=== PATIENT | female | born 1975 | race Asian ===

== ENCOUNTER 2017-01-11 10:01 | Inpatient (IN) | payer MEDICAID, OTHER ==
[~2017-01-11] VITALS: Ht 157.5 cm; Wt 56.5 kg
[2017-01-11] MEDS ORDERED: SOD CHLORIDE 0.9% 1,000 ML IV STA ×2 (11:24)
[2017-01-11] MEDS ORDERED: FERR325C PO (11:26)
[2017-01-11] MEDS ORDERED: PROG100C5 PO (11:26)
[2017-01-11] MEDS ORDERED: MULTI PO (11:27)
[2017-01-11] MEDS ORDERED: CHOL400T10 PO (11:27)
[2017-01-11 12:33] LABS: ABNORMAL IP MESSAGE 1; BASOPHILS % 0.3 % (0.0-2.0); EOSINOPHILS % 0.2 % (0.0-7.0); HEMATOCRIT 20.7 % (37.0-47.0); LYMPHOCYTES # 2.1 10^3/ul (0.8-2.9); LYMPHOCYTES % 22.9 % (15.0-51.0); MEAN CORPUSCULAR HEMOGLOBIN 32.1 pg (29.0-33.0); MEAN CORPUSCULAR HGB CONC 33.3 g/dl (32.0-37.0); MEAN CORPUSCULAR VOLUME 96.3 fl (82.0-101.0); MEAN PLATELET VOLUME 9.3 fl (7.4-10.4); MONOCYTE # 0.6 10^3/ul (0.3-0.9); MONOCYTES % 6.8 % (0.0-11.0); NEUTROPHILS % 69.1 % (39.0-77.0); PLATELET COUNT 345 10^3/UL (140-415); RED BLOOD COUNT 2.15 10^6/ul (4.20-5.40); RED CELL DISTRIBUTION WIDTH 12.9 % (11.5-14.5)
[2017-01-11 12:36] LABS: INR 0.91; PARTIAL THROMBOPLASTIN TIME 27.1 Sec (25.0-35.0); PROTIME 12.3 Sec (12.2-14.2)
[2017-01-11 12:41] LABS: ALANINE AMINOTRANSFERASE 22 IU/L (13-69); ALBUMIN 3.7 g/dl (3.3-4.9); ALBUMIN/GLOBULIN RATIO 1.27; ALKALINE PHOSPHATASE 39 IU/L (42-121); ANION GAP 20 (8-16); ASPARTATE AMINO TRANSFERASE 23 IU/L (15-46); BILIRUBIN,INDIRECT 0.2 mg/dl (0-1.1); BILIRUBIN,TOTAL 0.2 mg/dl (0.2-1.3); BLOOD UREA NITROGEN 3 mg/dl (7-20); CALCIUM 9.1 mg/dl (8.4-10.2); CARBON DIOXIDE 24 mmol/L (21-31); CHLORIDE 105 mmol/L (97-110); CREATININE 0.72 mg/dl (0.44-1.00); GLUCOSE 102 mg/dl (70-220); POTASSIUM 3.8 mmol/L (3.5-5.1); SODIUM 145 mmol/L (135-144); TOTAL PROTEIN 6.6 g/dl (6.1-8.1)
[2017-01-11 12:45] LABS: HEMOGLOBIN 6.9 g/dl (12.0-16.0); POSITIVE DIFF @See below
[2017-01-11 12:46] LABS: PATH REVIEW? YES
[2017-01-11 13:02] LABS: TROPONIN-I < 0.012 ng/ml (0.00-0.12)
[2017-01-11] MEDS ORDERED: SOD CHLORIDE 0.9% 250 ML IV ONE (13:05)
[2017-01-11] MEDS ORDERED: ACETAMINOPHEN 325 MG TAB PO ONE (13:30)
--- NOTE | 2017-01-11 13:52 | ERA ---
ER Documentation Chief Complaint Date/Time DATE: 01/11/17 TIME: 13:48 Chief Complaint Complains of Chest pain and SOB since last night HPI Patient is a 41-year-old female with no medical problems who presents with "severe menorrhagia". She said that she had 2 epidurals of cortisone done in the last 6 months and after the second epidural she started with dysfunctional uterine bleeding. She said that she started with her period on December 21 and is continued to have bleeding since then. She said that she her heart rate is tachycardic at 140. She was initially having brown and black blood but now it is bright red blood. She denies chest pain. Today she felt a little bit better and she started progesterone on Sunday after being seen by Dr. Bradford Rojas from OB. She started iron 1 week ago as well. Upon review of old medical records this is the patient's first visit to the ER. ROS All systems reviewed and are negative except as per history of present illness. Medications Home Meds Reported Medications Cholecalciferol* (Vitamin D*) 400 Unit Tablet, 400 UNIT PO DAILY, TAB 01/11/17 Multivitamins* (Theragran*) 1 Tab Tab, 1 TAB PO DAILY, TAB 01/11/17 Ferrous Sulfate (Iron) 325 Mg Capsule.er, 325 MG PO BID, CAP 01/11/17 Progesterone,Micronized* (Progesterone*) 100 Mg Capsule, 100 MG PO HS for 10 Days, CAP 01/11/17 Allergies Allergies: Coded Allergies: tapentadol (Verified Allergy, Severe, 01/11/17) PMhx/Soc Medical and Surgical Hx: pt denies Medical Hx, pt denies Surgical Hx Hx Alcohol Use: No Hx Substance Use: No Hx Tobacco Use: No Smoking Status: Never smoker FmHx Family History: No diabetes Physical Exam Vitals Vital Signs Date Time Temp Pulse Resp B/P Pulse Ox O2 Delivery O2 Flow Rate FiO2 01/11/17 12:26 94 16 133/81 98 Room Air 01/11/17 11:44 Nasal Cannula 2 01/11/17 10:12 98.5 136 20 128/81 99 Physical Exam Const: Moderate distress Head: Atraumatic Eyes: Normal Conjunctiva ENT: Normal External Ears, Nose and Mouth. Neck: Full range of motion..~ No meningismus. Resp: Clear to auscultation bilaterally Cardio: Tachycardic rate without murmur Abd: Soft, non tender, non distended. Normal bowel sounds Skin: Pale skin Back: No midline or flank tenderness Ext: No cyanosis, or edema Neur: Awake and alert Psych: Normal Mood and Affect Result Diagram: 01/11/17 1150 01/11/17 1150 Results 24 hrs Laboratory Tests Test 01/11/17 11:50 White Blood Count 9.010^3/ul Red Blood Count 2.1510^6/ul Hemoglobin 6.9g/dl Hematocrit 20.7% Mean Corpuscular Volume 96.3fl Mean Corpuscular Hemoglobin 32.1pg Mean Corpuscular Hemoglobin Concent 33.3g/dl Red Cell Distribution Width 12.9% Platelet Count 19004^3/UL Mean Platelet Volume 9.3fl Neutrophils % 69.1% Lymphocytes % 22.9% Monocytes % 6.8% Eosinophils % 0.2% Basophils % 0.3% Nucleated Red Blood Cells % 0.0/100WBC Neutrophils # (Manual) 6.210^3/ul Lymphocytes # 2.110^3/ul Monocytes # 0.610^3/ul Eosinophils # 0.010^3/ul Basophils # 0.010^3/ul Nucleated Red Blood Cells # 0.010^3/ul Pathologist Review (Hematology) YES Prothrombin Time 12.3Sec Prothrombin Time Ratio 1.0 INR International Normalized Ratio 0.91 Activated Partial Thromboplast Time 27.1Sec Sodium Level 145mmol/L Potassium Level 3.8mmol/L Chloride Level 105mmol/L Carbon Dioxide Level 24mmol/L Anion Gap 20 Blood Urea Nitrogen 3mg/dl Creatinine 0.72mg/dl Glucose Level 102mg/dl Calcium Level 9.1mg/dl Total Bilirubin 0.2mg/dl Direct Bilirubin 0.00mg/dl Indirect Bilirubin 0.2mg/dl Aspartate Amino Transf (AST/SGOT) 23IU/L Alanine Aminotransferase (ALT/SGPT) 22IU/L Alkaline Phosphatase 39IU/L Troponin I < 0.012ng/ml Total Protein 6.6g/dl Albumin 3.7g/dl Globulin 2.90g/dl Albumin/Globulin Ratio 1.27 Current Medications Medications (Trade) Dose Ordered Sig/Marquis Route PRN Reason Start Time Stop Time Status Last Admin Dose Admin Sodium Chloride 1,000 ml @ 1,000 mls/hr Q1H STAT IV 01/11/17 11:24 01/11/17 12:23 DC 01/11/17 11:36 Sodium Chloride 1,000 ml @ 1,000 mls/hr Q1H STAT IV 01/11/17 11:24 01/11/17 12:23 DC 01/11/17 11:37 Sodium Chloride (NS) 250 ml @ 0 mls/hr Q0M ONCE IV 01/11/17 13:05 01/11/17 13:06 DC Acetaminophen (Tylenol Tab) 650 mg ONCE ONCE PO 01/11/17 13:30 01/11/17 13:31 DC 01/11/17 13:37 Ondansetron HCl (Zofran Inj) 4 mg BRIDGE ORDER PRN IV NAUSEA AND/OR VOMITING 01/11/17 14:00 01/12/17 13:59 Acetaminophen (Tylenol Tab) 650 mg ER BRIDGE PRN PO MILD PAIN/FEVER 01/11/17 14:00 01/12/17 13:59 Procedures/MDM EKG read by me: Rate/Rhythm: Sinus tachycardia intervals: Normal Impression: Sinus tachycardia without ischemia Patient is a 41-year-old female who presents with dysfunctional uterine bleeding. She was found to have acute anemia at 6.9 with symptomatic anemia she feels short of breath and is tachycardic. The patient was given 2 L of normal saline for fluid resuscitation and will be transfused 2 units of packed red blood cells. The patient will be admitted to the care of Dr. Redman from the panel team for further treatment. The patient will be admitted to a medical surgical bed. The patient denies being at this time and we will confirm with a test. Critical Care: Time: 35 minutes excluding all billable procedures. Treatments/Evaluations: Close monitoring and treatment of unstable vital signs, cardiorespiratory, and neurologic status, while maintaining tight balance of fluid, respiratory, and cardiac interventions. Departure Diagnosis: Primary Impression: Dysfunctional uterine bleeding Additional Impression: Anemia Qualified Code: D64.9 - Anemia, unspecified type Condition: WING Toscano MD Jan 11, 2017 13:52
[2017-01-11] MEDS ORDERED: ONDANSETRON 4 MG INJ IV PRN ×2 (14:00→19:00)
[2017-01-11] MEDS ORDERED: ACETAMINOPHEN 325 MG TAB PO PRN (14:00)
[2017-01-11 18:10] VITALS: BP 100/57; PULSE 99; RESP 16
[2017-01-11 18:45] VITALS: Ht 157.5 cm; Wt 56.5 kg
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
[2017-01-11] MEDS ORDERED: NACL 0.9% 3 ML SYG IV SCH (19:00)
[2017-01-11] MEDS ORDERED: DOCUSATE SODIUM 100 MG CAP PO PRN (19:00)
[2017-01-11] MEDS ORDERED: morphine 2 MG INJ IV PRN (19:00)
[2017-01-11 19:33] VITALS: BP 116/67; RESP 20
[2017-01-11 20:00] VITALS: BP 96/51; RESP 20
[2017-01-11] MEDS: PROGESTERONE 100 MG CAP PO SCH (22:18)
[2017-01-11] MEDS: FERROUS SULFATE (EC) 325 MG TAB PO SCH (22:19)
[2017-01-11] MEDS: ZOLPIDEM 5 MG TAB PO PRN (22:19)
[2017-01-12] MEDS: ACETAMINOPHEN 325 MG TAB PO PRN ×3 (00:14→20:31)
[2017-01-12 02:00] VITALS: BP 115/61; RESP 20
[2017-01-12] MEDS: SOD CHLORIDE 0.45% 1,000 ML IV SCH ×2 (02:41→04:54)
[2017-01-12 06:19] LABS: ABNORMAL IP MESSAGE 1; BASOPHILS % 0.5 % (0.0-2.0); EOSINOPHILS # 0.1 10^3/ul (0.0-0.5); EOSINOPHILS % 1.8 % (0.0-7.0); HEMATOCRIT 20.8 % (37.0-47.0); LYMPHOCYTES # 2.6 10^3/ul (0.8-2.9); LYMPHOCYTES % 42.3 % (15.0-51.0); MEAN CORPUSCULAR HEMOGLOBIN 30.3 pg (29.0-33.0); MEAN CORPUSCULAR HGB CONC 33.2 g/dl (32.0-37.0); MEAN CORPUSCULAR VOLUME 91.2 fl (82.0-101.0); MEAN PLATELET VOLUME 9.2 fl (7.4-10.4); MONOCYTE # 0.4 10^3/ul (0.3-0.9); MONOCYTES % 7.1 % (0.0-11.0); NEUTROPHILS % 47.8 % (39.0-77.0); PLATELET COUNT 229 10^3/UL (140-415); RED BLOOD COUNT 2.28 10^6/ul (4.20-5.40); WHITE BLOOD COUNT 6.2 10^3/ul (4.8-10.8)
[2017-01-12 06:44] LABS: POSITIVE DIFF @See below
[2017-01-12 06:45] LABS: HEMOGLOBIN 6.9 g/dl (12.0-16.0)
[2017-01-12 06:52] LABS: CALCIUM 7.6 mg/dl (8.4-10.2); CREATININE 0.7 mg/dl (0.44-1.00); PHOSPHORUS 3.7 mg/dl (2.5-4.9); POTASSIUM 3.9 mmol/L (3.5-5.1)
[2017-01-12 07:48] VITALS: BP 107/57; RESP 16
--- NOTE | 2017-01-12 09:09 | RADRPT ---
PROCEDURE: US Pelvis. CLINICAL INDICATION: Abnormal vaginal bleeding. TECHNIQUE: The pelvis was evaluated with transabdominal and transvaginal sonography in the axial a nd sagittal planes. COMPARISON: No prior study is available for comparison. FINDINGS: Uterus: 8.5 x 8.9 x 5.7 cm. Endometrium: 4.6 mm. Right ovary: 3.1 x 1.6 x 2.2 cm. Left ovary: 5.6 x 4.0 x 3.9 cm. Uterine masses: None. Ovarian masses: The right ovary is normal. There is a benign-appearing left ovarian cyst measuring 4.4 x 3.6 x 3.3 cm. There are no internal echoes or septations. Color Doppler and pulsed Doppler so nography demonstrate normal flow to the ovaries. Other pelvic masses: None. Free fluid: Minimal free fluid is present in the cul-de-sac, likely physiologic. IMPRESSION: 1. Benign-appearing left ovarian cyst measuring 4.4 x 3.6 x 3.3 cm. Follow-up ultrasound in 6 week s is advised. 2. Otherwise unremarkable study. RPTAT: QQ .Lance Morales MD, Date Time Electronically viewed and signed by .Lance Morales MD, on 01/12/2017 09:08 .R/
[2017-01-12] MEDS: MULTIVITAMINS THERAPEUTIC TAB PO SCH (09:20)
[2017-01-12] MEDS: FERROUS SULFATE (EC) 325 MG TAB PO SCH ×2 (09:20→20:31)
[2017-01-12] MEDS: CHOLECALCIFEROL 400 UNITS TAB PO SCH (09:20)
[2017-01-12] MEDS: HYDROCODONE/APAP (5/325) TAB PO PRN (12:28)
--- NOTE | 2017-01-12 14:01 | PN ---
Date/Time of Note Date/Time of Note DATE: 01/12/17 TIME: 13:54 Assessment/Plan VTE Prophylaxis VTE Prophylaxis Intervention: ambulation Lines/Catheters IV Catheter Type (from Nrs): Peripheral IV Assessment/Plan Chief Complaint/Hosp Course 1. Severe symptomatic anemia secondary to dysfunctional uterine bleeding Gynecology consultation obtained, ultrasound done shows only simple ovarian cyst Status post 2 units of packed red blood cells and will transfuse another 2 as hemoglobin still low Continue home iron and progesterone 2. Hypernatremia IV fluids Prophylaxis: Ambulation Problems: Subjective 24 Hr Interval Summary Genitourinary: bleeding Exam/Review of Systems Vital Signs Vitals Vital Signs Date Time Temp Pulse Resp B/P Pulse Ox O2 Delivery O2 Flow Rate FiO2 01/12/17 07:48 98.6 95 16 107/57 97 01/11/17 18:10 Room Air 01/11/17 11:44 2 Intake and Output 01/11/17 01/11/17 01/12/17 15:00 23:00 07:00 Intake Total 360 ml 1212 ml Output Total 651 ml Balance 360 ml 561 ml Exam Constitutional: alert, oriented Respiratory: clear to auscultation Cardiovascular: regular rate and rhythm Gastrointestinal: soft, No distended Musculoskeletal: nl extremities to inspection Results Result Diagram: 01/12/17 0544 01/12/17 0544 Results 24 hrs Laboratory Tests Test 01/11/17 15:13 01/12/17 05:44 Serum HCG, Qualitative NEGATIVE White Blood Count 6.2 # Red Blood Count 2.28 L Hemoglobin 6.9 *L Hematocrit 20.8 L Mean Corpuscular Volume 91.2 Mean Corpuscular Hemoglobin 30.3 Mean Corpuscular Hemoglobin Concent 33.2 Red Cell Distribution Width 19.0 #H Platelet Count 229 # Mean Platelet Volume 9.2 Neutrophils % 47.8 Lymphocytes % 42.3 Monocytes % 7.1 Eosinophils % 1.8 Basophils % 0.5 Nucleated Red Blood Cells % 0.0 Neutrophils # (Manual) 3.0 Lymphocytes # 2.6 Monocytes # 0.4 Eosinophils # 0.1 Basophils # 0.0 Nucleated Red Blood Cells # 0.0 Sodium Level 137 Potassium Level 3.9 Chloride Level 109 Carbon Dioxide Level 26 Anion Gap 6 #L Blood Urea Nitrogen 6 L Creatinine 0.70 Glucose Level 75 Hemoglobin A1c 4.8 Calcium Level 7.6 L Phosphorus Level 3.7 Magnesium Level 2.0 Medications Medications Current Medications Sodium Chloride (1/2 NS) 1,000 ml @ 100 mls/hr Q10H IV Last administered on 02:41; Admin Dose 100 MLS/HR; Start 01/11/17 at 18:54; Stop 01/12/17 at 14 :53 Ondansetron HCl (Zofran Inj) 4 mg Q6H PRN IV NAUSEA AND/OR VOMITING; Start at 19:00 Acetaminophen (Tylenol Tab) 650 mg Q6H PRN PO PAIN LEVEL 1-3 OR FEVER Last administered on 01/12/17 10:49; Admin Dose 650 MG; Start 01/11/17 at 19:00 Acetaminophen/ Hydrocodone Bitart ([place] (5/325)) 1 tab Q6H PRN PO MODERATE PAIN LEVEL 4-6 Last administered on 01/12/17 12:28; Admin Dose 1 TAB; Start at 19:00 Morphine Sulfate (morphine) 2 mg Q4H PRN IV SEVERE PAIN LEVEL 7-10; Start 01/11 at 19:00 Docusate Sodium (Colace) 100 mg Q12H PRN PO CONSTIPATION; Start 01/11/17 at 19: 00 Cholecalciferol (Vitamin D) 400 units DAILY PO Last administered on 01/12/17 09 :20; Admin Dose 400 UNITS; Start 01/12/17 at 09:00 Multivitamins Therapeutic (Theragran) 1 tab DAILY PO Last administered on 09:20; Admin Dose 1 TAB; Start 01/12/17 at 09:00 Progesterone (Prometrium) 100 mg HS PO Last administered on 01/11/17 22:18; Admin Dose 100 MG; Start 01/11/17 at 21:00 Ferrous Sulfate (Ferrous Sulfate (Ec)) 325 mg BID PO Last administered on 09:20; Admin Dose 325 MG; Start 01/11/17 at 21:00 ROSELYN HAIDER Jan 12, 2017 14:01
[2017-01-12 19:23] VITALS: BP 121/74; RESP 20
[2017-01-12] MEDS: PROGESTERONE 100 MG CAP PO SCH (20:31)
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
[2017-01-13] VITALS (25 sets, daily range): BP systolic 99–155; BP diastolic 55–96; PULSE 62–88; RESP 11–22
[2017-01-13] MEDS: ZOLPIDEM 5 MG TAB PO PRN (00:10)
[2017-01-13] MEDS: DEXTROSE 5%-0.45% NACL 500 ML IV SCH ×2 (02:37→08:40)
[2017-01-13] MEDS: ACETAMINOPHEN 325 MG TAB PO PRN ×2 (02:37→09:59)
[2017-01-13 06:04] LABS: BASOPHILS % 0.6 % (0.0-2.0); EOSINOPHILS # 0.2 10^3/ul (0.0-0.5); EOSINOPHILS % 2.8 % (0.0-7.0); HEMATOCRIT 29.7 % (37.0-47.0); HEMOGLOBIN 9.8 g/dl (12.0-16.0); LYMPHOCYTES # 2.6 10^3/ul (0.8-2.9); LYMPHOCYTES % 35.9 % (15.0-51.0); MEAN CORPUSCULAR HEMOGLOBIN 29.9 pg (29.0-33.0); MEAN CORPUSCULAR VOLUME 90.5 fl (82.0-101.0); MEAN PLATELET VOLUME 9.2 fl (7.4-10.4); MONOCYTE # 0.5 10^3/ul (0.3-0.9); MONOCYTES % 6.8 % (0.0-11.0); NEUTROPHILS % 53.5 % (39.0-77.0); PLATELET COUNT 240 10^3/UL (140-415); RED BLOOD COUNT 3.28 10^6/ul (4.20-5.40); RED CELL DISTRIBUTION WIDTH 16.2 % (11.5-14.5); WHITE BLOOD COUNT 7.3 10^3/ul (4.8-10.8)
[2017-01-13 06:38] LABS: CALCIUM 7.9 mg/dl (8.4-10.2); CREATININE 0.77 mg/dl (0.44-1.00); POTASSIUM 3.8 mmol/L (3.5-5.1)
[2017-01-13] MEDS ORDERED: CEFAZOLIN 1 GM INJ ONE (07:00)
[2017-01-13 08:13] LABS: FREE T3 3.33 pg/ml (2.77-5.27)
[2017-01-13] MEDS: FERROUS SULFATE (EC) 325 MG TAB PO SCH ×2 (08:17→21:00)
[2017-01-13] MEDS: MULTIVITAMINS THERAPEUTIC TAB PO SCH (08:17)
[2017-01-13] MEDS: CHOLECALCIFEROL 400 UNITS TAB PO SCH (08:17)
[2017-01-13 08:26] LABS: THYROID STIMULATING HORMONE 1.31 MIU/L (0.465-4.680)
[2017-01-13] MEDS: HYDROCODONE/APAP (5/325) TAB PO PRN (08:26)
[2017-01-13] MEDS ORDERED: DEXTROSE 5%-0.45% NACL 1,000 ML IV SCH (10:00)
--- NOTE | 2017-01-13 12:48 | PN ---
Date/Time of Note Date/Time of Note DATE: 01/13/17 TIME: 12:45 Assessment/Plan VTE Prophylaxis VTE Prophylaxis Intervention: ambulation Lines/Catheters IV Catheter Type (from Nrs): Peripheral IV Assessment/Plan Chief Complaint/Hosp Course 1. Severe symptomatic anemia secondary to dysfunctional uterine bleeding-stable Gynecology consultation obtained, ultrasound done shows only simple ovarian cyst , plan is for his for hysteroscopy and fractional dilatation and cuettage after blood count is acceptable for procedure Status post 4 units of packed red blood cells Continue home iron and progesterone 2. Hypernatremia-resolved DC IV fluids 3. Shortness of breath-patient saturating well, likely secondary to anxiety Chest x-ray, DC IV fluids Prophylaxis: Ambulation Problems: Subjective 24 Hr Interval Summary Respiratory: shortness of breath Exam/Review of Systems Vital Signs Vitals Vital Signs Date Time Temp Pulse Resp B/P Pulse Ox O2 Delivery O2 Flow Rate FiO2 01/13/17 09:55 98.0 82 22 124/70 99 Room Air 01/11/17 11:44 2 Intake and Output 01/12/17 01/12/17 01/13/17 15:00 23:00 07:00 Intake Total 2620 ml 553 ml Output Total 1500 ml Balance 1120 ml 553 ml Exam Constitutional: alert, oriented Psych: anxiety Head: normocephalic Respiratory: clear to auscultation Cardiovascular: regular rate and rhythm Gastrointestinal: soft, No distended Musculoskeletal: nl extremities to inspection Results Result Diagram: 01/13/17 0515 01/13/17 0515 Results 24 hrs Laboratory Tests Test 01/13/17 05:15 01/13/17 05:17 White Blood Count 7.3 Red Blood Count 3.28 #L Hemoglobin 9.8 #L Hematocrit 29.7 #L Mean Corpuscular Volume 90.5 Mean Corpuscular Hemoglobin 29.9 Mean Corpuscular Hemoglobin Concent 33.0 Red Cell Distribution Width 16.2 H Platelet Count 240 Mean Platelet Volume 9.2 Neutrophils % 53.5 Lymphocytes % 35.9 Monocytes % 6.8 Eosinophils % 2.8 Basophils % 0.6 Nucleated Red Blood Cells % 0.0 Neutrophils # (Manual) 3.9 Lymphocytes # 2.6 Monocytes # 0.5 Eosinophils # 0.2 Basophils # 0.0 Nucleated Red Blood Cells # 0.0 Sodium Level 139 Potassium Level 3.8 Chloride Level 108 Carbon Dioxide Level 27 Anion Gap 8 Blood Urea Nitrogen 7 Creatinine 0.77 Glucose Level 84 Calcium Level 7.9 L Thyroid Stimulating Hormone (TSH) 1.310 Free Thyroxine 1.03 Free Triiodothyronine (T3) pg/mL 3.33 Medications Medications Current Medications Ondansetron HCl (Zofran Inj) 4 mg Q6H PRN IV NAUSEA AND/OR VOMITING; Start at 19:00 Acetaminophen (Tylenol Tab) 650 mg Q6H PRN PO PAIN LEVEL 1-3 OR FEVER Last administered on 01/13/17 09:59; Admin Dose 650 MG; Start 01/11/17 at 19:00 Acetaminophen/ Hydrocodone Bitart ([place] (5/325)) 1 tab Q6H PRN PO MODERATE PAIN LEVEL 4-6 Last administered on 01/13/17 08:26; Admin Dose 1 TAB; Start at 19:00 Morphine Sulfate (morphine) 2 mg Q4H PRN IV SEVERE PAIN LEVEL 7-10; Start 01/11 at 19:00 Docusate Sodium (Colace) 100 mg Q12H PRN PO CONSTIPATION; Start 01/11/17 at 19: 00 Cholecalciferol (Vitamin D) 400 units DAILY PO Last administered on 01/13/17 08 :17; Admin Dose 400 UNITS; Start 01/12/17 at 09:00 Multivitamins Therapeutic (Theragran) 1 tab DAILY PO Last administered on 08:17; Admin Dose 1 TAB; Start 01/12/17 at 09:00 Progesterone (Prometrium) 100 mg HS PO Last administered on 01/12/17 20:31; Admin Dose 100 MG; Start 01/11/17 at 21:00 Ferrous Sulfate (Ferrous Sulfate (Ec)) 325 mg BID PO Last administered on 08:17; Admin Dose 325 MG; Start 01/11/17 at 21:00 ROSELYN HAIDER Jan 13, 2017 12:48
--- NOTE | 2017-01-13 13:09 | RADRPT ---
PROCEDURE: XR Chest. CLINICAL INDICATION: Shortness of breath TECHNIQUE: PA and lateral views of the chest were obtained COMPARISON: None FINDINGS: The heart and mediastinum are within normal limits. The pulmonary vasculature are unremarkable. The aorta is unremarkable. There is no lung consolidation, pleural effusion or pneumothorax. There is no acute osseous abnormality. IMPRESSION: No acute disease. RPTAT: AA .Larissa Ash MD, MD Date Time Electronically viewed and signed by .Larissa Ash MD, MD on 01/13/2017 13:09 .J/
[2017-01-13] MEDS ORDERED: LIDOCAINE 2% (SDV) 5 ML INJ ONE (19:34)
[2017-01-13] MEDS ORDERED: PROPOFOL 20 ML ONE (19:34)
[2017-01-13] MEDS ORDERED: MIDAZOLAM 1 MG/ML 2 ML INJ ONE ×2 (20:04)
[2017-01-13] MEDS ORDERED: FENTAnyl 50 MCG/ML VIAL ONE (20:16)
[2017-01-13] MEDS ORDERED: ONDANSETRON 4 MG INJ ONE (20:32)
[2017-01-13] MEDS ORDERED: FAMOTIDINE 20 MG INJ ONE (20:33)
[2017-01-13] MEDS ORDERED: DEXAMETHASONE 4 MG/ML 1 ML INJ ONE (20:33)
[2017-01-13] MEDS: PROGESTERONE 100 MG CAP PO SCH (21:00)
[2017-01-13] MEDS ORDERED: HYDROmorphONE (0.2 MG/ML) 10ML SYG IV PRN (21:30)
[2017-01-13] MEDS ORDERED: FENTAnyl 50 MCG/ML VIAL IV PRN (21:30)
[2017-01-13] MEDS ORDERED: DIPHENHYDRAMINE 50 MG INJ IV PRN (21:30)
[2017-01-13] MEDS ORDERED: ONDANSETRON 4 MG INJ IV PRN (21:30)
[2017-01-13] MEDS ORDERED: MEPERIDINE 25 MG INJ IV PRN (21:30)
--- NOTE | 2017-01-13 21:38 | SIPON ---
Date/Time of Note Date/Time of Note DATE: 01/13/17 TIME: 21:36 Operative Report Preoperative Diagnosis severe anemia secondary to abnormal uterine bleeding Postoperative Diagnosis see path report Operation/Procedure Performed hysteroscopy fractional dilatation and curettage Surgeon: SAMUEL TRAORE MD Anesthesia Type: general Estimated Blood Loss: minimal Transfusion Required: no Specimens ECC [facility] Grafts/Implants: none Grafts/Implants none Complications: no SAMUEL TRAORE MD Jan 13, 2017 21:38
[2017-01-13] MEDS ORDERED: ACETAMINOPHEN 1000MG/100ML IV 0 ML ONE (22:00)
--- NOTE | 2017-01-13 23:08 | OPR ---
DATE OF OPERATION: 01/13/2017 PREOPERATIVE DIAGNOSIS: Abnormal uterine bleeding. POSTOPERATIVE DIAGNOSIS: See pathological report. OPERATIVE PROCEDURE: Hysteroscopy, fractional dilatation and curettage. ANESTHESIA: General. ANESTHESIOLOGIST: Dr. Kimble. SURGEON: Mary Rojas. ESTIMATED BLOOD LOSS: Negligible. OPERATIVE PROCEDURE: Under appropriate induction of general anesthesia, patient was placed in dorsal lithotomy position. Perineal area and vagina were prepped and draped in usual aseptic manner. On inspection, external genitalia revealed no gross abnormality. Bimanual examination, uterus is a slightly increased in size, form and consistency. There was no palpable adnexal pathology. Weighted speculum was introduced. Cervix was identified, which was parous-appearing, clear, and anteriorly the cervix was grasped with a single-tooth tenaculum and an endocervical curettage was performed with obtaining scant tissue, which was sent to Pathology. The cavity was sounded 8.5 cm, also was slightly dilated gradually and the diagnostic hysteroscope was introduced into the endocervix with hydrodilation and normal saline was 10-40 medium, which was into the uterine cavity, distended uterine cavity and viewed the endocervical canal and advanced to the fundus area and both ostia were clearly visualized. From the patient's anatomical side, left side is endometrium is mostly atrophied, but the right side, near the cornua and anterior wall, there was some endometrial tissue seen, hyperplastic, on the anterior aspect laterally. So endometrial curettage was performed obtaining some moderate tissue, especially on the right side of the uterus. Anteriorly, slightly irregular, but there is no significant irregularity noted. Re- scoped, and most of tissue on the right side was retrieved. Picture was taken from the fundus on the way through the endocervix, which was satisfactory. Procedure was completed and fluid deficit is less than 100. The instrument was removed from the operative field. Sponge count taken, which was correct. The patient was sent to the recovery in stable condition. Dictated By: Betty Rojas MD /[email or web address]/ed /Document#: [id number]
[2017-01-14] VITALS (8 sets, daily range): BP systolic 101–130; BP diastolic 58–74; PULSE 89–90; RESP 18–22
[2017-01-14] MEDS: ZOLPIDEM 5 MG TAB PO PRN (01:47)
[2017-01-14 06:59] LABS: ABNORMAL IP MESSAGE 1; BASOPHILS % 0.3 % (0.0-2.0); HEMATOCRIT 33.1 % (37.0-47.0); HEMOGLOBIN 10.9 g/dl (12.0-16.0); LYMPHOCYTES # 0.4 10^3/ul (0.8-2.9); LYMPHOCYTES % 5.3 % (15.0-51.0); MEAN CORPUSCULAR HEMOGLOBIN 30.5 pg (29.0-33.0); MEAN CORPUSCULAR HGB CONC 32.9 g/dl (32.0-37.0); MEAN CORPUSCULAR VOLUME 92.7 fl (82.0-101.0); MEAN PLATELET VOLUME 9.5 fl (7.4-10.4); MONOCYTE # 0.1 10^3/ul (0.3-0.9); MONOCYTES % 1.3 % (0.0-11.0); NEUTROPHILS % 92.6 % (39.0-77.0); PLATELET COUNT 267 10^3/UL (140-415); RED BLOOD COUNT 3.57 10^6/ul (4.20-5.40); RED CELL DISTRIBUTION WIDTH 16.2 % (11.5-14.5); WHITE BLOOD COUNT 7.9 10^3/ul (4.8-10.8)
[2017-01-14 07:15] LABS: POSITIVE DIFF @See below
[2017-01-14 07:33] LABS: CALCIUM 8.2 mg/dl (8.4-10.2); CREATININE 0.84 mg/dl (0.44-1.00); POTASSIUM 4.5 mmol/L (3.5-5.1)
[2017-01-14] MEDS: CHOLECALCIFEROL 400 UNITS TAB PO SCH (09:16)
[2017-01-14] MEDS: MULTIVITAMINS THERAPEUTIC TAB PO SCH (09:16)
[2017-01-14] MEDS: FERROUS SULFATE (EC) 325 MG TAB PO SCH ×2 (09:17→20:25)
[2017-01-14] MEDS: ACETAMINOPHEN 325 MG TAB PO PRN ×2 (09:22→20:26)
[2017-01-14] MEDS: HYDROCODONE/APAP (5/325) TAB PO PRN ×2 (14:57→22:28)
--- NOTE | 2017-01-14 18:12 | PN ---
Date/Time of Note Date/Time of Note DATE: 01/14/17 TIME: 18:08 Assessment/Plan VTE Prophylaxis VTE Prophylaxis Intervention: ambulation Lines/Catheters IV Catheter Type (from Nrs): Saline Lock Assessment/Plan Chief Complaint/Hosp Course 1. Severe symptomatic anemia secondary to dysfunctional uterine bleeding- improved but the bleeding still persists Status post Hysteroscopy, fractional dilatation and curettage Ultrasound done shows only simple ovarian cyst Status post 4 units of packed red blood cells Continue home iron and progesterone 2. Hypernatremia-resolved 3. Shortness of breath-patient saturating well, likely secondary to anxiety- improved Chest x-ray is normal, DC'd IV fluids as patient does have some anasarca 4. Back pain-muscular skeletal Pain control Prophylaxis: Ambulation Problems: Subjective 24 Hr Interval Summary Musculoskeletal: back pain Exam/Review of Systems Vital Signs Vitals Vital Signs Date Time Temp Pulse Resp B/P Pulse Ox O2 Delivery O2 Flow Rate FiO2 01/14/17 14:00 98.4 89 22 122/63 99 Room Air 01/13/17 21:28 10.0 Intake and Output 01/13/17 01/13/17 01/14/17 15:00 23:00 07:00 Intake Total 645 ml 880 ml 1000 ml Output Total 2275 ml 1800 ml Balance 645 ml -1395 ml -800 ml Exam Constitutional: alert, oriented Respiratory: clear to auscultation Cardiovascular: regular rate and rhythm Gastrointestinal: soft, No distended Musculoskeletal: nl extremities to inspection Results Result Diagram: 01/14/17 0531 01/14/17 0531 Results 24 hrs Laboratory Tests Test 01/14/17 05:31 01/14/17 07:33 White Blood Count 7.9 Red Blood Count 3.57 L Hemoglobin 10.9 L Hematocrit 33.1 L Mean Corpuscular Volume 92.7 Mean Corpuscular Hemoglobin 30.5 Mean Corpuscular Hemoglobin Concent 32.9 Red Cell Distribution Width 16.2 H Platelet Count 267 Mean Platelet Volume 9.5 Neutrophils % 92.6 H Lymphocytes % 5.3 L Monocytes % 1.3 Eosinophils % 0.0 Basophils % 0.3 Nucleated Red Blood Cells % 0.0 Neutrophils # (Manual) 7.3 Lymphocytes # 0.4 L Monocytes # 0.1 L Eosinophils # 0.0 Basophils # 0.0 Nucleated Red Blood Cells # 0.0 Sodium Level 139 Potassium Level 4.5 Chloride Level 107 Carbon Dioxide Level 25 Anion Gap 12 Blood Urea Nitrogen 7 Creatinine 0.84 Glucose Level 115 Calcium Level 8.2 L Lab Scanned Report BLOOD TRANSFUSION Medications Medications Current Medications Ondansetron HCl (Zofran Inj) 4 mg Q6H PRN IV NAUSEA AND/OR VOMITING; Start at 19:00 Acetaminophen (Tylenol Tab) 650 mg Q6H PRN PO PAIN LEVEL 1-3 OR FEVER Last administered on 01/14/17 09:22; Admin Dose 650 MG; Start 01/11/17 at 19:00 Acetaminophen/ Hydrocodone Bitart ([place] (5/325)) 1 tab Q6H PRN PO MODERATE PAIN LEVEL 4-6 Last administered on 01/14/17 14:57; Admin Dose 1 TAB; Start at 19:00 Morphine Sulfate (morphine) 2 mg Q4H PRN IV SEVERE PAIN LEVEL 7-10; Start 01/11 at 19:00 Docusate Sodium (Colace) 100 mg Q12H PRN PO CONSTIPATION Last administered on 01:02; Admin Dose 100 MG; Start 01/11/17 at 19:00 Cholecalciferol (Vitamin D) 400 units DAILY PO Last administered on 01/14/17 09 :16; Admin Dose 400 UNITS; Start 01/12/17 at 09:00 Multivitamins Therapeutic (Theragran) 1 tab DAILY PO Last administered on 09:16; Admin Dose 1 TAB; Start 01/12/17 at 09:00 Progesterone (Prometrium) 100 mg HS PO Last administered on 01/12/17 20:31; Admin Dose 100 MG; Start 01/11/17 at 21:00 Ferrous Sulfate (Ferrous Sulfate (Ec)) 325 mg BID PO Last administered on 09:17; Admin Dose 325 MG; Start 01/11/17 at 21:00 ROSELYN HAIDER Jan 14, 2017 18:12
[2017-01-14] MEDS: PROGESTERONE 100 MG CAP PO SCH (20:25)
[2017-01-15] MEDS: ZOLPIDEM 5 MG TAB PO PRN ×2 (01:34→22:23)
[2017-01-15 02:26] VITALS: BP 120/69; RESP 16
[2017-01-15 06:27] LABS: BASOPHILS % 0.3 % (0.0-2.0); EOSINOPHILS # 0.1 10^3/ul (0.0-0.5); EOSINOPHILS % 1.2 % (0.0-7.0); HEMATOCRIT 33.1 % (37.0-47.0); HEMOGLOBIN 10.9 g/dl (12.0-16.0); LYMPHOCYTES # 2.1 10^3/ul (0.8-2.9); LYMPHOCYTES % 27.1 % (15.0-51.0); MEAN CORPUSCULAR HGB CONC 32.9 g/dl (32.0-37.0); MEAN PLATELET VOLUME 9.2 fl (7.4-10.4); MONOCYTE # 0.5 10^3/ul (0.3-0.9); MONOCYTES % 6.1 % (0.0-11.0); NEUTROPHILS % 64.9 % (39.0-77.0); PLATELET COUNT 280 10^3/UL (140-415); RED BLOOD COUNT 3.52 10^6/ul (4.20-5.40); RED CELL DISTRIBUTION WIDTH 15.9 % (11.5-14.5); WHITE BLOOD COUNT 7.8 10^3/ul (4.8-10.8)
[2017-01-15 06:53] LABS: CALCIUM 7.9 mg/dl (8.4-10.2); CREATININE 0.72 mg/dl (0.44-1.00); POTASSIUM 3.6 mmol/L (3.5-5.1)
[2017-01-15 07:31] VITALS: BP 116/69; RESP 20
[2017-01-15] MEDS: MULTIVITAMINS THERAPEUTIC TAB PO SCH (09:17)
[2017-01-15] MEDS: FERROUS SULFATE (EC) 325 MG TAB PO SCH ×2 (09:17→22:23)
[2017-01-15] MEDS: CHOLECALCIFEROL 400 UNITS TAB PO SCH (09:17)
[2017-01-15] MEDS: HYDROCODONE/APAP (5/325) TAB PO PRN ×2 (11:18→18:26)
[2017-01-15 11:31] LABS: IRON 60 ug/dl (35-150)
[2017-01-15 11:41] LABS: TOTAL IRON BINDING CAPACITY 256 ug/dl (241-421)
[2017-01-15] MEDS: ACETAMINOPHEN 325 MG TAB PO PRN (15:08)
[2017-01-15 15:35] VITALS: BP 124/74; RESP 16
[2017-01-15 20:00] VITALS: BP 153/85; RESP 18
--- NOTE | 2017-01-15 20:00 | PN ---
Date/Time of Note Date/Time of Note DATE: 01/15/17 TIME: 19:59 Assessment/Plan VTE Prophylaxis VTE Prophylaxis Intervention: contraindicated Lines/Catheters IV Catheter Type (from Nrs): Saline Lock Assessment/Plan Chief Complaint/Hosp Course 41 yo female with menorrhagia leading to acute blood loss and iron deficiency anemia Acute on chronic blood loss anemia: - H/H stable - Menorrhagia management per slat basket maker machine: progestrone for now Headache: - CT head - [place] PRN Discharge home tomorrow Problems: Subjective 24 Hr Interval Summary Free Text/Dictation H/H stable No further bleeding Complains of headache, no neuro deficits Doesn't want to go home Exam/Review of Systems Vital Signs Vitals Vital Signs Date Time Temp Pulse Resp B/P Pulse Ox O2 Delivery O2 Flow Rate FiO2 01/15/17 15:35 98.4 70 16 124/74 98 01/14/17 14:00 Room Air 01/13/17 21:28 10.0 Intake and Output 01/14/17 01/14/17 01/15/17 15:00 23:00 07:00 Intake Total 2060 ml 600 ml Output Total 1200 ml Balance 860 ml 600 ml Exam Appears well Odd affect CN II XII in tact No sensory or motor deficits noted CLear lungs Regular heart sounds Trace pedal edema Results Result Diagram: 01/15/17 0541 01/15/17 0540 Results 24 hrs Laboratory Tests Test 01/15/17 05:40 01/15/17 05:41 Sodium Level 138 Potassium Level 3.6 Chloride Level 105 Carbon Dioxide Level 28 Anion Gap 9 Blood Urea Nitrogen 6 L Creatinine 0.72 Glucose Level 80 Calcium Level 7.9 L Iron Level 60 Total Iron Binding Capacity 256 Percent Iron Saturation 23 Ferritin 47.5 White Blood Count 7.8 Red Blood Count 3.52 L Hemoglobin 10.9 L Hematocrit 33.1 L Mean Corpuscular Volume 94.0 Mean Corpuscular Hemoglobin 31.0 Mean Corpuscular Hemoglobin Concent 32.9 Red Cell Distribution Width 15.9 H Platelet Count 280 Mean Platelet Volume 9.2 Neutrophils % 64.9 Lymphocytes % 27.1 Monocytes % 6.1 Eosinophils % 1.2 Basophils % 0.3 Nucleated Red Blood Cells % 0.0 Neutrophils # (Manual) 5.1 Lymphocytes # 2.1 Monocytes # 0.5 Eosinophils # 0.1 Basophils # 0.0 Nucleated Red Blood Cells # 0.0 Medications Medications Current Medications Ondansetron HCl (Zofran Inj) 4 mg Q6H PRN IV NAUSEA AND/OR VOMITING; Start at 19:00 Acetaminophen (Tylenol Tab) 650 mg Q6H PRN PO PAIN LEVEL 1-3 OR FEVER Last administered on 01/15/17 15:08; Admin Dose 650 MG; Start 01/11/17 at 19:00 Acetaminophen/ Hydrocodone Bitart ([place] (5/325)) 1 tab Q6H PRN PO MODERATE PAIN LEVEL 4-6 Last administered on 01/15/17 18:26; Admin Dose 1 TAB; Start at 19:00 Morphine Sulfate (morphine) 2 mg Q4H PRN IV SEVERE PAIN LEVEL 7-10; Start 01/11 at 19:00 Docusate Sodium (Colace) 100 mg Q12H PRN PO CONSTIPATION Last administered on 01:02; Admin Dose 100 MG; Start 01/11/17 at 19:00 Cholecalciferol (Vitamin D) 400 units DAILY PO Last administered on 01/15/17 09 :17; Admin Dose 400 UNITS; Start 01/12/17 at 09:00 Multivitamins Therapeutic (Theragran) 1 tab DAILY PO Last administered on 09:17; Admin Dose 1 TAB; Start 01/12/17 at 09:00 Progesterone (Prometrium) 100 mg HS PO Last administered on 01/14/17 20:25; Admin Dose 100 MG; Start 01/11/17 at 21:00 Ferrous Sulfate (Ferrous Sulfate (Ec)) 325 mg BID PO Last administered on 09:17; Admin Dose 325 MG; Start 01/11/17 at 21:00 JUSTINE TERESA MD Jan 15, 2017 20:00
[2017-01-15] MEDS: PROGESTERONE 100 MG CAP PO SCH (22:23)
[2017-01-15] MEDS ORDERED: traMADol 50 MG TAB ONE (23:26)
[2017-01-15] MEDS: traMADol 50 MG TAB PO PRN (23:30)
[2017-01-15] MEDS ORDERED: traMADol 50 MG TAB PO PRN ×2 (23:30)
[2017-01-15] MEDS ORDERED: ONDANSETRON 4 MG TAB ONE (23:41)
[2017-01-15] MEDS: ONDANSETRON 4 MG TAB PO PRN (23:48)
--- NOTE | 2017-01-16 01:39 | RADRPT ---
PROCEDURE: CT HEAD WITHOUT CONTRAST: CLINICAL INDICATION: 41 years of age female, headache COMPARISON: None available. TECHNIQUE: CT of the head was performed without IV contrast. Coronal and sagittal reformatted images were obtained from the axial source images. Images were reviewed on a high-resolution PACS workstat ion. Dose information: The estimated radiation dose (CTDI vol mGy) for each series in this exam is 43.2 . The estimated cumulative dose (DLP mGy-cm) is 855 . One or more of the following dose reduction techniques were used: - Automated exposure control. - Adjustment of the mA and/or kV according to patient size. - Use of iterative reconstruction technique. FINDINGS: Parenchyma: Negative for evidence of acute intracranial hemorrhage, mass effect or large territory i nfarct. Esquivel-white matter differentiation is maintained. Ventricles and extra-axial spaces: Appropriate for age. No abnormal extra-axial fluid collections ar e identified. Visualized paranasal sinuses: Clear. Mastoid air cells: Clear. Bones: No focal abnormality. Additional comment: Disconjugate gaze incidentally noted. IMPRESSION: Unremarkable CT head for age. Negative for evidence of acute intracranial hemorrhage or mass effect . Cause for headache is not evident. RPTAT: HCTS Physician Sam Date Time Electronically viewed and signed by Physician Sam on 01/16/2017 01:39 /
[2017-01-16 02:00] VITALS: BP 132/81; RESP 20
[2017-01-16] MEDS: HYDROCODONE/APAP (5/325) TAB PO PRN ×2 (04:07→12:46)
[2017-01-16 05:44] LABS: BASOPHILS % 0.6 % (0.0-2.0); EOSINOPHILS # 0.1 10^3/ul (0.0-0.5); HEMATOCRIT 35.4 % (37.0-47.0); HEMOGLOBIN 11.8 g/dl (12.0-16.0); LYMPHOCYTES # 1.9 10^3/ul (0.8-2.9); LYMPHOCYTES % 26.8 % (15.0-51.0); MEAN CORPUSCULAR HEMOGLOBIN 31.2 pg (29.0-33.0); MEAN CORPUSCULAR HGB CONC 33.3 g/dl (32.0-37.0); MEAN CORPUSCULAR VOLUME 93.7 fl (82.0-101.0); MEAN PLATELET VOLUME 9.1 fl (7.4-10.4); MONOCYTE # 0.5 10^3/ul (0.3-0.9); MONOCYTES % 7.4 % (0.0-11.0); NEUTROPHILS % 62.8 % (39.0-77.0); PLATELET COUNT 301 10^3/UL (140-415); RED BLOOD COUNT 3.78 10^6/ul (4.20-5.40); RED CELL DISTRIBUTION WIDTH 15.1 % (11.5-14.5); WHITE BLOOD COUNT 7.1 10^3/ul (4.8-10.8)
[2017-01-16 06:13] LABS: CALCIUM 8.3 mg/dl (8.4-10.2); CREATININE 0.7 mg/dl (0.44-1.00); POTASSIUM 3.9 mmol/L (3.5-5.1)
[2017-01-16 07:35] VITALS: BP 116/67; RESP 16
[2017-01-16] MEDS: ONDANSETRON 4 MG TAB PO PRN ×2 (08:22→12:45)
[2017-01-16] MEDS: MULTIVITAMINS THERAPEUTIC TAB PO SCH (08:23)
[2017-01-16] MEDS: FERROUS SULFATE (EC) 325 MG TAB PO SCH (08:23)
[2017-01-16] MEDS: traMADol 50 MG TAB PO PRN ×2 (08:23→14:53)
[2017-01-16] MEDS: CHOLECALCIFEROL 400 UNITS TAB PO SCH (08:23)
[2017-01-16 14:39] VITALS: BP 124/69; RESP 18
--- NOTE | 2017-01-16 15:20 | PN ---
Date/Time of Note Date/Time of Note DATE: 01/16/17 TIME: 15:19 Assessment/Plan VTE Prophylaxis VTE Prophylaxis Intervention: LMWH Lines/Catheters IV Catheter Type (from Nrs): Saline Lock Assessment/Plan Chief Complaint/Hosp Course 41 yo female with menorrhagia leading to acute blood loss and iron deficiency anemia Acute on chronic blood loss anemia: - H/H stable - Menorrhagia management per hypoid gear generator: progestrone for now - Continue iron supplementation Headache: - CT head normal - [place] PRN Nausea: - Unclear etioloyg, no organic etiology found - supportive care Discharge home today or tomorrow Problems: Subjective 24 Hr Interval Summary Free Text/Dictation Complaing of nausea and feeling weak Mild vaginal bleeding started again Does not feel like she can return home yet CT head unremarkable Exam/Review of Systems Vital Signs Vitals Vital Signs Date Time Temp Pulse Resp B/P Pulse Ox O2 Delivery O2 Flow Rate FiO2 01/16/17 14:39 98.3 74 18 124/69 94 01/14/17 14:00 Room Air 01/13/17 21:28 10.0 Intake and Output 01/15/17 01/15/17 01/16/17 15:00 23:00 07:00 Intake Total 1490 ml 1600 ml Output Total 1200 ml 2000 ml Balance 290 ml -400 ml Exam Constitutional: alert, oriented, well developed Psych: nl mood/affect, no complaints Head: atraumatic, normocephalic Eyes: EOMI, PERRL, nl conjunctiva, nl lids, nl sclera ENMT: nl external ears & nose, nl lips & teeth, nl nasal mucosa & septum Neck: non-tender, supple Respiratory: clear to auscultation, normal air movement Cardiovascular: nl pulses, regular rate and rhythm Gastrointestinal: nl liver, spleen, non-tender, soft Musculoskeletal: nl extremities to inspection, nl gait and stance Extremities: normal pulses Neurological: ACCELERATOR SYSTEMS DIRECTOR II-XII intact, nl mental status, nl speech, nl strength Skin: nl turgor, No rash or lesions Lymph: nl lymph nodes Results Result Diagram: 01/16/1712 01/16/17 0512 Results 24 hrs Laboratory Tests Test 01/16/17 05:12 White Blood Count 7.1 Red Blood Count 3.78 L Hemoglobin 11.8 L Hematocrit 35.4 L Mean Corpuscular Volume 93.7 Mean Corpuscular Hemoglobin 31.2 Mean Corpuscular Hemoglobin Concent 33.3 Red Cell Distribution Width 15.1 H Platelet Count 301 Mean Platelet Volume 9.1 Neutrophils % 62.8 Lymphocytes % 26.8 Monocytes % 7.4 Eosinophils % 2.0 Basophils % 0.6 Nucleated Red Blood Cells % 0.0 Neutrophils # (Manual) 4.5 Lymphocytes # 1.9 Monocytes # 0.5 Eosinophils # 0.1 Basophils # 0.0 Nucleated Red Blood Cells # 0.0 Sodium Level 136 Potassium Level 3.9 Chloride Level 103 Carbon Dioxide Level 29 Anion Gap 8 Blood Urea Nitrogen 8 Creatinine 0.70 Glucose Level 80 Calcium Level 8.3 L Medications Medications Current Medications Ondansetron HCl (Zofran Inj) 4 mg Q6H PRN IV NAUSEA AND/OR VOMITING; Start at 19:00 Acetaminophen (Tylenol Tab) 650 mg Q6H PRN PO PAIN LEVEL 1-3 OR FEVER Last administered on 01/15/17 15:08; Admin Dose 650 MG; Start 01/11/17 at 19:00 Acetaminophen/ Hydrocodone Bitart ([place] (5/325)) 1 tab Q6H PRN PO MODERATE PAIN LEVEL 4-6 Last administered on 01/16/17 12:46; Admin Dose 1 TAB; Start at 19:00 Morphine Sulfate (morphine) 2 mg Q4H PRN IV SEVERE PAIN LEVEL 7-10; Start 01/11 at 19:00 Docusate Sodium (Colace) 100 mg Q12H PRN PO CONSTIPATION Last administered on 01:02; Admin Dose 100 MG; Start 01/11/17 at 19:00 Cholecalciferol (Vitamin D) 400 units DAILY PO Last administered on 01/16/17 08 :23; Admin Dose 400 UNITS; Start 01/12/17 at 09:00 Multivitamins Therapeutic (Theragran) 1 tab DAILY PO Last administered on 08:23; Admin Dose 1 TAB; Start 01/12/17 at 09:00 Progesterone (Prometrium) 100 mg HS PO Last administered on 01/15/17 22:23; Admin Dose 100 MG; Start 01/11/17 at 21:00 Ferrous Sulfate (Ferrous Sulfate (Ec)) 325 mg BID PO Last administered on 08:23; Admin Dose 325 MG; Start 01/11/17 at 21:00 Tramadol HCl (Ultram) 50 mg Q6H PRN PO MODERATE PAIN; Start 01/15/17 at 23:30 Tramadol HCl (Ultram) 100 mg Q6H PRN PO severe pain Last administered on 14:53; Admin Dose 100 MG; Start 01/15/17 at 23:30 Ondansetron HCl (Zofran Tab) 4 mg Q4 PRN PO NAUSEA AND/OR VOMITING Last administered on 01/16/17 12:45; Admin Dose 4 MG; Start 01/16/17 at 13:00 JUSTINE TERESA MD Jan 16, 2017 15:20
[2017-01-16 20:20] VITALS: BP 135/84; RESP 18
[2017-01-16] MEDS: PROGESTERONE 100 MG CAP PO SCH (20:48)
[2017-01-17] MEDS: ZOLPIDEM 5 MG TAB PO PRN (00:44)
[2017-01-17] MEDS: ACETAMINOPHEN 325 MG TAB PO PRN ×3 (00:44→21:21)
[2017-01-17 02:34] VITALS: BP 129/85; RESP 18
[2017-01-17] MEDS: ONDANSETRON 4 MG TAB PO PRN ×3 (07:11→18:35)
[2017-01-17] MEDS: traMADol 50 MG TAB PO PRN ×2 (07:12→18:35)
[2017-01-17 07:32] VITALS: BP 124/82; RESP 18
[2017-01-17] MEDS: MULTIVITAMINS THERAPEUTIC TAB PO SCH (08:08)
[2017-01-17] MEDS: HYDROCODONE/APAP (5/325) TAB PO PRN (12:48)
--- NOTE | 2017-01-17 15:02 | PN ---
Date/Time of Note Date/Time of Note DATE: 01/17/17 TIME: 15:00 Assessment/Plan VTE Prophylaxis VTE Prophylaxis Intervention: contraindicated Lines/Catheters IV Catheter Type (from Nrsg): Saline Lock Assessment/Plan Chief Complaint/Hosp Course 41 yo female with menorrhagia leading to acute blood loss and iron deficiency anemia. S/p tranfusions and endometrial biopys. Refusing to be discharged, given 24 hours notice today. 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 Patient given 24 hours notice and agrees to leave tomorrow Problems: Subjective 24 Hr Interval Summary Free Text/Dictation Patient again refused discharge today She says she doesnt "feel quite right" but can't identitfy any clear symptoms Perseverates on the edema in her feet which is not present at all Says she can't go home because she is worried something will go wrong and that "nobody is there to take care of her' She is unable to identify any needs that she needs to be cared for Exam/Review of Systems Vital Signs Vitals Vital Signs Date Time Temp Pulse Resp B/P Pulse Ox O2 Delivery O2 Flow Rate FiO2 01/17/17 07:32 98.3 70 18 124/82 97 01/14/17 14:00 Room Air 01/13/17 21:28 10.0 Intake and Output 01/16/17 01/16/17 01/17/17 15:00 23:00 07:00 Intake Total 950 ml 460 ml Output Total 1330 ml 400 ml Balance -380 ml 60 ml Exam Histrioinc affect No pertinent physical findings Constitutional: alert, oriented, well developed Results Result Diagram: 01/16/17 0512 01/16/17511 Medications Medications Current Medications Ondansetron HCl (Zofran Inj) 4 mg Q6H PRN IV NAUSEA AND/OR VOMITING; Start at 19:00 Acetaminophen (Tylenol Tab) 650 mg Q6H PRN PO PAIN LEVEL 1-3 OR FEVER Last administered on 01/17/17t 00:44; Admin Dose 650 MG; Start 01/11/17 at 19:00 Acetaminophen/ Hydrocodone Bitart ([place] (5/325)) 1 tab Q6H PRN PO MODERATE PAIN LEVEL 4-6 Last administered on 01/17/17 12:48; Admin Dose 1 TAB; Start at 19:00 Morphine Sulfate (morphine) 2 mg Q4H PRN IV SEVERE PAIN LEVEL 7-10; Start 01/11 at 19:00 Docusate Sodium (Colace) 100 mg Q12H PRN PO CONSTIPATION Last administered on 01:02; Admin Dose 100 MG; Start 01/11/17 at 19:00 Multivitamins Therapeutic (Theragran) 1 tab DAILY PO Last administered on 08:08; Admin Dose 1 TAB; Start 01/12/17 at 09:00 Progesterone (Prometrium) 100 mg HS PO Last administered on 01/16/17 20:48; Admin Dose 100 MG; Start 01/11/17 at 21:00 Tramadol HCl (Ultram) 50 mg Q6H PRN PO MODERATE PAIN; Start 01/15/17 at 23:30 Tramadol HCl (Ultram) 100 mg Q6H PRN PO severe pain Last administered on 07:12; Admin Dose 100 MG; Start 01/15/17 at 23:30 Ondansetron HCl (Zofran Tab) 4 mg Q4 PRN PO NAUSEA AND/OR VOMITING Last administered on 01/17/17 12:48; Admin Dose 4 MG; Start 01/16/17 at 13:00 JUSTINE TERESA MD Jan 17, 2017 15:02
[2017-01-17 15:12] VITALS: BP 121/75; RESP 19
[2017-01-17 19:56] VITALS: BP 118/65; RESP 16
[2017-01-17] MEDS: PROGESTERONE 100 MG CAP PO SCH (21:22)
[2017-01-18] MEDS: ZOLPIDEM 5 MG TAB PO PRN (02:00)
[2017-01-18 02:12] VITALS: BP 132/83; RESP 18
[2017-01-18 07:17] VITALS: BP 116/74; RESP 18
[2017-01-18] MEDS: MULTIVITAMINS THERAPEUTIC TAB PO SCH (07:35)
[2017-01-18] MEDS: traMADol 50 MG TAB PO PRN ×2 (07:35→15:49)
[2017-01-18] MEDS: ONDANSETRON 4 MG TAB PO PRN ×3 (08:27→21:05)
[2017-01-18] MEDS: ACETAMINOPHEN 325 MG TAB PO PRN (12:27)
[2017-01-18 13:56] VITALS: BP 126/69; RESP 18
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
[2017-01-18 20:08] VITALS: BP 149/94; RESP 18
[2017-01-18] MEDS: PROGESTERONE 100 MG CAP PO SCH (21:05)
[2017-01-18] MEDS: HYDROCODONE/APAP (5/325) TAB PO PRN (21:05)
== END 2017-01-18 22:27 | disposition home or self-care (01) | DRG 988 ==
LOC: E/R 10:01 → MS2 13:42
PROVIDERS: ADMIT Internal Medicine; ATTEND Internal Medicine
PROC: 30233N1 Transfusion of Nonautologous Red Blood Cells into Peripheral Vein, Percutaneous Approach (ICD-10-PCS; 2017-01-11)
PROC: 0UDB8ZX Extraction of Endometrium, Via Natural or Artificial Opening Endoscopic, Diagnostic (ICD-10-PCS; principal; 2017-01-13 20:00)
DX: D62 Acute posthemorrhagic anemia (principal); E87.0 Hyperosmolality and hypernatremia; R51 Headache; R11.0 Nausea; N83.209 Unspecified ovarian cyst, unspecified side; F60.4 Histrionic personality disorder; N92.0 Excessive and frequent menstruation with regular cycle
CPT/HCPCS: 36415; 36430; 70450; 71020; 76830; 76856; 80048; 80053; 82728; 83036; 83540; 83735; 84100; 84439; 84443; 84481; 84484; 84703; 85025; 85610; 85730; 86850; 86900; 86901; 86920; 88305; 93005; J0131; J0690; J1100; J1200; J2175; J2250; J2405; J3010; J7030; J7040; J7042; P9016